=== PATIENT | male | born 1985 | race African-American/Black ===

== ENCOUNTER 2016-11-04 13:42 | Emergency (ER) | payer MEDICAID, OTHER ==
[~2016-11-04] VITALS: Ht 203.2 cm; Wt 160.0 kg
[2016-11-04] MEDS ORDERED: ONDANSETRON HCL 4MG/2ML VIAL IV STA (17:13)
[2016-11-04] MEDS ORDERED: KETOROLAC 30MG/ML VIAL IV STA (17:13)
[2016-11-04] MEDS ORDERED: SODIUM CHLORIDE 0.9% 1,000 ML IV ONE (17:13)
[2016-11-04 17:40] LABS: BASOPHILS % 1.1 % (0.0-2.0); EOSINOPHILS % 0.6 % (0.0-5.0); HEMOGLOBIN. 18.2 g/dL (14.0-18.0); LYMPHOCYTES % 23.8 % (20.0-50.0); MEAN CORPUSCULAR HEMOGLOBIN 26.8 pg (28.0-32.0); MEAN CORPUSCULAR VOLUME 82.5 fL (80.0-94.0); MEAN PLATELET VOLUME 9.1 fl (7.4-10.4); MONOCYTES % 7.6 % (2.0-8.0); NEUTROPHILS % 66.9 % (40.0-76.0); RED BLOOD CELL COUNT 6.79 mill/uL (4.7-6.1); RED CELL DISTRIBUTION WIDTH 14.8 % (11.6-14.6)
[2016-11-04 17:47] LABS: INR 1.1; PROTHROMBIN TIME 11.8 sec
[2016-11-04 18:43] LABS: PLATELET 290 x1000/uL (130-400)
[2016-11-04 19:10] LABS: *AMPHETAMINES SCREEN URINE NEGATIVE (NEGATIVE); *BARBITURATES SCREEN URINE NEGATIVE (NEGATIVE); *BENZODIAZEPINES SCREEN URINE NEGATIVE (NEGATIVE); *COCAINE SCREEN URINE NEGATIVE (NEGATIVE); CANNABINOID URINE SCREEN NEGATIVE (NEGATIVE); METHADONE URINE SCREEN NEGATIVE (NEGATIVE); OPIATES URINE SCREEN NEGATIVE (NEGATIVE); PHENCYCLIDINE URINE SCREEN NEGATIVE (NEGATIVE)
[2016-11-04 20:03] LABS: CHLORIDE 102 mEq/L (98-107)
[2016-11-04 20:04] LABS: CARBON DIOXIDE 11 mEq/L (21-32)
[2016-11-04] MEDS ORDERED: MORPHINE SULFATE 4 MG/ML CPJ (NOT FOR IM USE) IV STA (20:42)
[2016-11-04 21:01] VITALS: BP 132/44
[2016-11-04 21:40] LABS: BASOPHILS % 0.9 % (0.0-2.0); EOSINOPHILS % 0.1 % (0.0-5.0); HEMATOCRIT. 52.4 % (42.0-52.0); MEAN CORPUSCULAR HEMOGLOBIN 26.5 pg (28.0-32.0); MEAN CORPUSCULAR VOLUME 81.4 fL (80.0-94.0); MEAN PLATELET VOLUME 8.7 fl (7.4-10.4); MONOCYTES % 9.5 % (2.0-8.0); NEUTROPHILS % 68.5 % (40.0-76.0); PLATELET 284 x1000/uL (130-400); RED BLOOD CELL COUNT 6.44 mill/uL (4.7-6.1); RED CELL DISTRIBUTION WIDTH 14.8 % (11.6-14.6)
[2016-11-04] MEDS ORDERED: POTASSIUM CHLORIDE 20MEQ TABLET SR PO ONE (21:45)
[2016-11-11] MEDS ORDERED: KEFLL21 PO (12:01)
[2016-11-11] MEDS ORDERED: INSLIS SUBCUT (12:01)
[2016-11-11] MEDS ORDERED: LEVVL SUBCUT (12:01)
== END 2016-11-04 22:38 | disposition home or self-care (01) ==
LOC: ER 14:23
DX: R10.13 Epigastric pain (principal); E11.9 Type 2 diabetes mellitus without complications; I10 Essential (primary) hypertension
CPT/HCPCS: 36415; 71010; 74176; 80053; 80305; 83690; 85025; 85610; 86850; 86900; 86901; 93005; 96361; 96374; 96375; 99285; J1885; J2270; J2405; Z7610; J7030

== ENCOUNTER 2016-11-28 18:13 | Emergency (ER) | payer MEDICAID ==
[~2016-11-28] VITALS: Ht 203.2 cm; Wt 137.0 kg
[~2016-11-28 18:13] MED LIST: INSLIS SUBCUT; KEFLL21 PO; LEVVL SUBCUT
[2016-11-28] MEDS ORDERED: SODIUM CHLORIDE 0.9% 1,000 ML IV ONE (19:18)
[2016-11-28 19:35] LABS: HEMATOCRIT. 43.9 % (42.0-52.0); HEMOGLOBIN. 14.3 g/dL (14.0-18.0); MEAN CORPUSCULAR HEMOGLOBIN 26.7 pg (28.0-32.0); MEAN CORPUSCULAR VOLUME 82.1 fL (80.0-94.0); MEAN PLATELET VOLUME 8.3 fl (7.4-10.4); PLATELET 271 x1000/uL (130-400); RED BLOOD CELL COUNT 5.35 mill/uL (4.7-6.1); RED CELL DISTRIBUTION WIDTH 16.1 % (11.6-14.6)
[2016-11-28 19:39] LABS: CHLORIDE 102 mEq/L (98-107)
[2016-11-28 19:47] LABS: BETA HYDROXYBUTYRATE 0.1 mMol/L (0.0-0.3); CARBON DIOXIDE 24 mEq/L (21-32)
[2016-11-28 19:50] LABS: PLATELET ESTIMATE NORMAL
[2016-11-28] MEDS ORDERED: INSULIN REGULAR (HUMULIN R) 300UNITS/3ML IV ONE (20:15)
[2016-11-28 21:30] VITALS: BP 136/89
== END 2016-11-28 22:27 | disposition home or self-care (01) ==
LOC: ER 21:06
DX: E11.65 Type 2 diabetes mellitus with hyperglycemia (principal); I10 Essential (primary) hypertension; Z79.4 Long term (current) use of insulin
CPT/HCPCS: 36415; 80053; 82010; 82962; 85025; 96361; 96374; 99285; J1815; J7030; Z7610

== ENCOUNTER 2017-03-18 11:31 | Emergency (ER) | payer MEDICAID ==
[~2017-03-18] VITALS: Ht 203.2 cm; Wt 174.0 kg
[2017-03-18] MEDS ORDERED: BARIUM SULFATE 450ML ORAL SUSP ONE (14:35)
[2017-03-18] MEDS ORDERED: SODIUM CHLORIDE 0.9% 500 ML IV ONE (14:54)
[2017-03-18 15:16] LABS: BASOPHILS % 0.9 % (0.0-2.0); EOSINOPHILS % 1.6 % (0.0-5.0); HEMATOCRIT. 46.5 % (42.0-52.0); HEMOGLOBIN. 15.8 g/dL (14.0-18.0); LYMPHOCYTES % 45.5 % (20.0-50.0); MEAN CORPUSCULAR VOLUME 79.5 fL (80.0-94.0); MONOCYTES % 8.2 % (2.0-8.0); NEUTROPHILS % 43.8 % (40.0-76.0); PLATELET 283 x1000/uL (130-400); RED BLOOD CELL COUNT 5.85 mill/uL (4.7-6.1); RED CELL DISTRIBUTION WIDTH 14.9 % (11.6-14.6)
[2017-03-18 15:20] LABS: CHLORIDE 102 mEq/L (98-107)
[2017-03-18 15:25] LABS: CARBON DIOXIDE 28 mEq/L (21-32)
[2017-03-18 15:28] LABS: PHOSPHORUS 2.4 mg/dL (2.5-4.9)
[2017-03-18 17:48] VITALS: BP 147/81
== END 2017-03-18 17:55 | disposition home or self-care (01) ==
LOC: ER 12:24
DX: E11.9 Type 2 diabetes mellitus without complications (principal); R10.9 Unspecified abdominal pain; R13.10 Dysphagia, unspecified; I10 Essential (primary) hypertension; Z79.4 Long term (current) use of insulin
CPT/HCPCS: 36415; 71250; 80053; 83690; 83735; 84100; 85025; 96360; 96361; 99285; J7030; J7040; Z7610

== ENCOUNTER 2018-09-20 09:42 | Emergency (ER) | payer MEDICAID ==
[~2018-09-20] VITALS: Ht 203.2 cm; Wt 157.0 kg
[2018-09-20 09:55] VITALS: BP 161/120
== END 2018-09-20 11:08 | disposition home or self-care (01) ==
LOC: ER 09:42
DX: H66.91 Otitis media, unspecified, right ear (principal); I10 Essential (primary) hypertension; E66.9 Obesity, unspecified
CPT/HCPCS: 99283

== ENCOUNTER 2022-02-19 08:38 | Emergency (ER) | payer MEDICAID, OTHER ==
[~2022-02-19] VITALS: Ht 208.3 cm; Wt 164.0 kg
[2022-02-19 09:08] VITALS: BP 153/110
[2022-02-19] MEDS ORDERED: ACETAMINOPHEN 325MG TABLET PO ONE (09:30)
[2022-02-19] MEDS ORDERED: ACET-2708 MT (10:54)
[2022-02-19] MEDS ORDERED: SULF1TAB48 MT (10:54)
[2022-02-19] MEDS ORDERED: SULFAMETHOXAZOLE/TRIMETHOPRIM 800/160MG TABLET PO ONE (11:00)
[2022-02-19] MEDS ORDERED: BACITRACIN ZINC OINT UDPKT TOP ONE (11:00)
== END 2022-02-19 11:39 | disposition home or self-care (01) ==
LOC: ER 08:38
DX: E11.621 Type 2 diabetes mellitus with foot ulcer (principal); I10 Essential (primary) hypertension; Z13.9 Encounter for screening, unspecified
CPT/HCPCS: 73630; 82962; 99283